=== PATIENT | male | born 1990 | race African-American/Black ===

== ENCOUNTER 2023-03-09 13:06 | Emergency (ER) | payer SELFPAY ==
[~2023-03-09] VITALS: Ht 157.5 cm; Wt 99.8 kg
[2023-03-09] MEDS ORDERED: LORAZEPAM INJ 2 MG/ML VIAL IVP ONE (14:30)
[2023-03-09] MEDS ORDERED: MIDAZOLAM HCL 2 MG/2ML VIAL IV ONE (14:30)
[2023-03-09] MEDS ORDERED: IV NS 0.9% 1,000 ML BAG IV ONE (14:30)
[2023-03-09] MEDS ORDERED: MIDAZOLAM HCL 2 MG/2ML VIAL ONE (14:32)
[2023-03-09 14:56] VITALS: BP 162/108; TEMP 98.4; O2SAT 98
[2023-03-09] MEDS ORDERED: MIDAZOLAM HCL 2 MG/2ML VIAL IM ONE (15:00)
== END 2023-03-09 14:58 | disposition left against medical advice (07) ==
LOC: EDBD 13:06 → ER 13:06
DX: R45.1 Restlessness and agitation (principal); Z53.21 Procedure and treatment not carried out due to patient leaving prior to being seen by health care provider
CPT/HCPCS: A4223; J2250; J7030